=== PATIENT | female | born 1990 | race Caucasian/White ===

== ENCOUNTER 2019-07-29 07:20 | Emergency (ER) | payer SELFPAY ==
[2019-07-29] MEDS ORDERED: DIAZEPAM 5 MG TABLET ONE ×2 (08:22→08:25)
[2019-07-29] MEDS ORDERED: LORazepam 2 MG/ML VIAL ONE (08:37)
[2019-07-29] MEDS ORDERED: FLUORESCEIN SODIUM 1 MG/WRAP ONE (09:07)
[2019-07-29] MEDS ORDERED: TETRACAINE HCL 0.5% 4ML OPTH ONE (09:07)
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
[2019-07-29 13:30] LABS: Urine Blood NEGATIVE (NEG); Urine Glucose NEGATIVE (NEG); Urine Protein NEGATIVE (NEG); Urine Specific Gravity 1.015 (1.005-1.030)
== END 2019-07-29 11:25 | disposition home or self-care (01) ==
LOC: ER 07:20
DX: S39.012A Strain of muscle, fascia and tendon of lower back, initial encounter (principal); V49.40XA Driver injured in collision with unspecified motor vehicles in traffic accident, initial encounter; Z88.5 Allergy status to narcotic agent
CPT/HCPCS: 72100; 81003; 81025; 96372; 99284